=== PATIENT | female | born 1935 | race Caucasian/White ===

== ENCOUNTER → 2017-04-23 | Outpatient (CLI) | payer OTHER ==
[~2017-04-23] MED LIST: LEVO100T PO; LITH150C PO; LOSA50TA6 PO; PRAV20TA2 PO
== END | disposition home or self-care (01) ==
LOC: ROC 09:18
PROVIDERS: ATTEND Radiology Radiation Oncology
DX: Z08 Encounter for follow-up examination after completed treatment for malignant neoplasm (principal); C34.12 Malignant neoplasm of upper lobe, left bronchus or lung
CPT/HCPCS: 99213; G0463

== ENCOUNTER → 2017-07-26 | Outpatient (CLI) | payer OTHER | END | disposition home or self-care (01) | LOC: ROC 13:14 | PROVIDERS: ATTEND Radiology Radiation Oncology | DX: C34.12 Malignant neoplasm of upper lobe, left bronchus or lung (principal); E11.9 Type 2 diabetes mellitus without complications | CPT/HCPCS: 99213; G0463 ==

== ENCOUNTER → 2017-11-01 | Outpatient (CLI) | payer OTHER | END | disposition home or self-care (01) | LOC: ROC 14:08 | PROVIDERS: ATTEND Radiology Radiation Oncology | DX: Z08 Encounter for follow-up examination after completed treatment for malignant neoplasm (principal); C34.12 Malignant neoplasm of upper lobe, left bronchus or lung | CPT/HCPCS: 99213; G0463 ==

== ENCOUNTER → 2018-03-07 | Outpatient (CLI) | payer OTHER | LOC: ROC 08:23 | PROVIDERS: ATTEND Radiology Radiation Oncology | DX: Z08 Encounter for follow-up examination after completed treatment for malignant neoplasm (principal); C34.12 Malignant neoplasm of upper lobe, left bronchus or lung | CPT/HCPCS: 99212; G0463 ==

== ENCOUNTER → 2018-04-18 | Outpatient (CLI) | payer OTHER | LOC: ROC 07:42 | PROVIDERS: ATTEND Radiology Radiation Oncology | DX: C34.12 Malignant neoplasm of upper lobe, left bronchus or lung (principal); Z08 Encounter for follow-up examination after completed treatment for malignant neoplasm; N83.201 Unspecified ovarian cyst, right side; N28.89 Other specified disorders of kidney and ureter; F31.9 Bipolar disorder, unspecified; Z90.49 Acquired absence of other specified parts of digestive tract; Z95.0 Presence of cardiac pacemaker | CPT/HCPCS: 99213; G0463 ==

== ENCOUNTER → 2018-07-21 | Outpatient (CLI) | payer OTHER ==
[~2018-07-21] MED LIST changes: -LOSA50TA6 PO; +LOSA50TA7 PO
== END | disposition home or self-care (01) ==
LOC: ROC 08:19
PROVIDERS: ATTEND Radiology Radiation Oncology
DX: C34.12 Malignant neoplasm of upper lobe, left bronchus or lung (principal); N28.89 Other specified disorders of kidney and ureter; E11.9 Type 2 diabetes mellitus without complications
CPT/HCPCS: 99213; G0463

== ENCOUNTER → 2018-11-07 | Outpatient (CLI) | payer OTHER | END | disposition home or self-care (01) | LOC: ROC 07:49 | PROVIDERS: ATTEND Radiology Radiation Oncology | DX: Z02.9 Encounter for administrative examinations, unspecified (principal) ==

== ENCOUNTER 2018-11-24 07:57 | Outpatient (CLI) | payer MEDICARE, OTHER ==
[~2018-11-24 07:57] MED LIST changes: +LOSA50TA14 PO; -LOSA50TA7 PO
== END 2018-11-24 23:59 | disposition home or self-care (01) ==
LOC: ROC 07:57
PROVIDERS: ATTEND Radiology Radiation Oncology
DX: C34.32 Malignant neoplasm of lower lobe, left bronchus or lung (principal); N28.89 Other specified disorders of kidney and ureter
CPT/HCPCS: 99213; G0463

== ENCOUNTER → 2019-05-08 | Outpatient (CLI) | payer MEDICARE | END | disposition home or self-care (01) | LOC: ROC 09:52 | PROVIDERS: ATTEND Radiology Radiation Oncology | DX: Z08 Encounter for follow-up examination after completed treatment for malignant neoplasm (principal); Z85.528 Personal history of other malignant neoplasm of kidney; Z85.118 Personal history of other malignant neoplasm of bronchus and lung | CPT/HCPCS: 99212; G0463 ==